=== PATIENT | female | born 1990 | race Caucasian/White ===

== ENCOUNTER 2021-11-10 09:12 | Day surgery (SDC) | payer BC ==
[2021-11-10] MEDS ORDERED: Dexmedetomidine 200 MCG/2 ML SDV ONE (09:21)
[2021-11-10] MEDS ORDERED: Propofol 200 MG/20 ML SDV ONE ×2 (09:22→10:36)
[2021-11-10] MEDS ORDERED: fentaNYL 100 MCG/2 ML SDV ONE (09:22)
[2021-11-10] MEDS ORDERED: Midazolam 1 MG/ML 2 ML SDV ONE (09:22)
--- NOTE | 2021-11-10 09:45 | PCM.PREANE ---
Preanesthetic Assessment - Procedure Proposed Procedure: LEEP - Anesthesia/Transfusion/Family Hx Anesthesia History: Prior Anesthesia Without Reaction Family History of Anesthesia Reaction: No Transfusion History: No Prior Transfusion(s) - Review of Systems General: No Symptoms Pulmonary: No Symptoms (Quit smoking 2019) Cardiovascular: No Symptoms Gastrointestinal: No Symptoms Neurological: No Symptoms Other: Reports: Anxiety (ADHD) - Physical Assessment NPO Status Date: 11/09/21 NPO Status Time: 11:59 Vital Signs: Last Vital Signs Temp 97.7 F 11/10/21 09:23 Pulse 74 11/10/21 09:23 Resp 14 11/10/21 09:23 BP 113/69 11/10/21 09:23 Pulse Ox 100 11/10/21 09:23 Height: 5 ft 9 in Weight: 83.007 kg ASA Class: 2 Mental Status: Alert & Oriented x3 Airway Class: Mallampati = 2 Dentition: Reports: Normal Dentition Thyro-Mental Finger Breadths: 3 Mouth Opening Finger Breadths: 3 ROM/Head Extension: Full Lungs: Clear to Auscultation, Normal Respiratory Effort Cardiovascular: Regular Rate, Regular Rhythm - Lab Values: Laboratory Last Values Urine HCG, Qual NEGATIVE (NEGATIVE) 11/10/21 09:00 - Allergies Allergies/Adverse Reactions: Allergies Allergy/AdvReac Type Severity Reaction Status Date / Time Sulfa (Sulfonamide Allergy Hives Verified 11/04/21 09:02 Antibiotics) - Acknowledgements Anesthesia Type Planned: General Anesthesia Pt an Appropriate Candidate for the Planned Anesthesia: Yes Alternatives and Risks of Anesthesia Discussed w Pt/Guardian: Yes Pt/Guardian Understands and Agrees with Anesthesia Plan: Yes PreAnesthesia Questionnaire HEENT History: Reports: None Cardiovascular History: Reports: None Respiratory History: Reports: None Gastrointestinal History: Reports: Other (See Below) Other Gastrointestinal History: occasional heartburn Genitourinary History: Reports: Pyelonephritis, UTI, Recurrent Other Genitourinary History: UTI every 2 years CHIEF GUARD History: Reports: , Spontaneous Musculoskeletal History: Reports: Fracture Other Musculoskeletal History: hx fx arm as a child Neurological History: Reports: None Psychiatric History: Reports: ADHD, Anxiety Endocrine/Metabolic History: Reports: None Hematologic History: Reports: None Immunologic History: Reports: Other (See Below) Other Immunologic History: hx of MRSA from wound in left arm in highschool Oncologic (Cancer) History: Reports: None Dermatologic History: Reports: None - Past Surgical History Head Surgeries/Procedures: Reports: None HEENT Surgical History: Reports: Oral Surgery Other HEENT Surgeries/Procedures: wisdom teeth extraction Cardiovascular Surgical History: Reports: None Respiratory Surgical History: Reports: None GI Surgical History: Reports: None Female Surgical History: Reports: Breast Implant Endocrine Surgical History: Reports: None Neurological Surgical History: Reports: None Musculoskeletal Surgical History: Reports: None Oncologic Surgical History: Reports: None Dermatological Surgical History: Reports: None - SUBSTANCE USE Tobacco Use Status *Q: Former Tobacco User Tobacco Use Within Last Twelve Months: No - HOME MEDS Home Medications: Home Meds Amphetamine Sulfate 20 mg PO BID 11/04/21 [History] Clindamycin Phosphate [Cleocin T 1% Gel] 1 applic TOP BID 11/04/21 [History] - CURRENT (IN HOUSE) MEDS Current Meds: Current Medications Discontinued Medications Dexmedetomidine HCl (Dexmedetomidine 200 Mcg/2 Ml Sdv) Confirm Administered Dose 200 mcg .ROUTE .STK-MED ONE Stop: 11/10/21 09:22 Fentanyl (Fentanyl 100 Mcg/2 Ml Sdv) Confirm Administered Dose 100 mcg .ROUTE .STK-MED ONE Stop: 11/10/21 09:23 Lidocaine HCl (Lidocaine 1% 5 Ml Sdv) Confirm Administered Dose 5 ml .ROUTE .STK-MED ONE Stop: 11/10/21 09:22 Midazolam HCl (Midazolam 1 Mg/Ml 2 Ml Sdv) Confirm Administered Dose 2 mg .ROUTE .STK-MED ONE Stop: 11/10/21 09:23 Propofol (Propofol 200 Mg/20 Ml Sdv) Confirm Administered Dose 200 mg .ROUTE .STK-MED ONE Stop: 11/10/21 09:23
[2021-11-10 10:27] LABS: BLOOD UREA NITROGEN,BUN 8 mg/dL (7.0-18.0); CARBON DIOXIDE,CO2 26.4 mmol/L (21.0-32.0); CHLORIDE,CL 105 mmol/L (98-107); GLUCOSE RANDOM 86 mg/dL (74-106); POTASSIUM,K 3.7 mmol/L (3.5-5.1); SODIUM,NA 139 mmol/L (136-145)
[2021-11-10] MEDS ORDERED: Ketorolac 30 MG/ML SDV ONE (10:48)
[2021-11-10] MEDS ORDERED: Ondansetron 4 MG/2 ML SDV ONE (10:48)
[2021-11-10] MEDS ORDERED: Acetaminophen/HYDROcodone 325-5 MG Tab PO PRN (11:10)
--- NOTE | 2021-11-10 11:29 | PCM.POSTAN ---
POST ANESTHESIA ASSESSMENT - MENTAL STATUS Mental Status: Somnolent - VITAL SIGNS Vital Signs: Last Vital Signs Temp 97.0 F 11/10/21 11:07 Pulse 80 11/10/21 11:27 Resp 11 L 11/10/21 11:27 BP 87/46 L 11/10/21 11:27 Pulse Ox 100 11/10/21 11:27 - RESPIRATORY Respiratory Status: Respiratory Rate WNL, Airway Patent, O2 Saturation Stable - CARDIOVASCULAR CV Status: Pulse Rate WNL, Blood Pressure Stable - GASTROINTESTINAL GI Status: No Symptoms - PAIN Free Text/Narrative:: Resting comfortably - POST OP HYDRATION Hydration Status: Adequate & Stable
--- NOTE | 2021-11-10 11:37 | PCM48HPAN ---
Post Anesthesia Note - EVALUATION WITHIN 48HRS OF ANESTHETIC Vital Signs in Normal Range: Yes Patient Participated in Evaluation: Yes Respiratory Function Stable: Yes Airway Patent: Yes Cardiovascular Function Stable: Yes Hydration Status Stable: Yes Pain Control Satisfactory: Yes Nausea and Vomiting Control Satisfactory: Yes Mental Status Recovered: Yes Vital Signs: Last Vital Signs Temp 97.0 F 11/10/21 11:07 Pulse 68 11/10/21 11:32 Resp 12 11/10/21 11:32 BP 97/55 L 11/10/21 11:32 Pulse Ox 96 11/10/21 11:32 - COMMENTS/OBSERVATIONS Free Text/Narrative:: Pt doing well post-op. VSS. No apparent anesthetic complications. Dr. Dc Levi
--- NOTE | 2021-11-10 12:43 | OR ---
SURGEON: Darryl Gregorio MD DATE OF PROCEDURE: 11/10/2021 INDICATION FOR PROCEDURE: A 31-year-old G 1, P 0-0-1-0 with cervical dysplasia, presenting for LEEP. The patient has a history of abnormal Pap smears for many years, reports was mild dysplasia that did not require treatment. She had a Pap smear this year that was ASCUS with positive other HPV type, negative for high-risk HPV. She had a colposcopy with biopsies, which showed moderate dysplasia at the 10 o'clock biopsy consistent with BRODY 2. Discussed the options with the patient, including close monitoring with repeat Pap smears or proceeding with cervical conization with LEEP procedure. Discussed the risk of LEEP procedure may include complications with future pregnancies involving cervical shortening, miscarriage or labor. The patient desires to proceed with LEEP. PREOPERATIVE DIAGNOSIS: Moderate cervical dysplasia with BRODY 2. POSTOPERATIVE DIAGNOSIS: Moderate cervical dysplasia with BRODY 2. PROCEDURE PERFORMED: Loop electrocautery excision procedure and colposcopy. ANESTHESIA: General anesthesia. ANESTHESIOLOGIST: Dr. Dc Levi. ESTIMATED BLOOD LOSS: 5 mL. URINE OUTPUT: 15 mL. FINDINGS: Uterus normal sized, anteverted, and mobile. No adnexal masses. Colposcopy was performed with acetowhite changes and mosaicism noted from the 10 to 2 o'clock region. DESCRIPTION OF PROCEDURE: The procedure was discussed with the patient. The risks include bleeding, infection, DVTs, injury to surrounding organs including bladder, bowel, ureters, risks of shortened cervix in future pregnancies with miscarriage or labor. Questions were answered and consent signed. The patient was brought to the operating room. General anesthesia was applied without difficulty. She was placed in dorsal lithotomy position with her legs supported using stirrups. She was draped in sterile fashion. Bimanual exam revealed normal size uterus, anteverted, and mobile. No adnexal masses were felt. A coated speculum was placed in the vaginal vault to visualize the cervix. A colposcopy was performed. Acetowhite changes with some mosaicism were noted from the 10 o'clock to 2 o'clock area after acetic acid was applied. Transformation zone was seen. Betadine was applied to the cervix and surrounding vagina. 10 mL of 1% lidocaine with epinephrine was injected circumferentially around the cervix. A 25 mm x 15 mm loop was used to excise the abnormal-appearing area. The specimen was tagged at 12 o'clock. There was a small abnormal area remaining from the 4 to 8 o'clock area and a smaller partial cone was taken from that area and tagged at 6 o'clock. The ball cautery was used to achieve hemostasis of the bed of the cone and Monsel's solution was applied over the incision. The patient tolerated the procedure well. She was woken from anesthesia without any complications. MARY YODER /[id number] MTDD
== END 2021-11-10 12:12 | disposition home or self-care (01) ==
LOC: MW.SDS 09:12
PROVIDERS: ATTEND Obstetrics & Gynecology
DX: N87.1 Moderate cervical dysplasia (principal); Z79.899 Other long term (current) drug therapy; Z98.890 Other specified postprocedural states; Z88.2 Allergy status to sulfonamides; Z87.891 Personal history of nicotine dependence; Z01.812 Encounter for preprocedural laboratory examination; Z20.822 Contact with and (suspected) exposure to COVID-19
CPT/HCPCS: 57460; 80053; 81025; 85025; 87635; J1885; J2250; J2370; J2405; J2704; J3010; 00940; U0002